=== PATIENT | female | born 1955 | race Caucasian/White ===

== ENCOUNTER 2017-05-01 11:36 | Emergency (ER) | payer OTHER ==
[~2017-05-01] VITALS: Ht 162.6 cm; Wt 58.4 kg
[2017-05-01 11:42] VITALS: BP 168/72; PULSE 69; RESP 16; TEMP 98.1; O2SAT 98
[2017-05-01] MEDS ORDERED: SYNT25TA PO (12:20)
[2017-05-01] MEDS ORDERED: ONDANSETRON HCL 4 MG/2 ML VIAL IV PUSH ONE (12:45)
[2017-05-01] MEDS ORDERED: SODIUM CHLORIDE 0.9% FLUSH 10 ML FLUSH IV FLUSH PRN (12:45)
--- NOTE | 2017-05-01 12:45 | PD ---
HPI Chief Complaint: GI Complaint Time Seen by Provider: 12:22 Travel History International Travel<30 days: No Contact w/Intl Traveler<30days: No Traveled to known affect area: No History of Present Illness HPI Patient is a 62-year-old female presents emergency Department with nonbloody and non-bilious vomiting since yesterday and diarrhea with one episode of blood in the stool yesterday. Patient states she's been having some lower abdominal cramping. Denies a history of blood thinner use. States has not happened her before. States that she's not had any colonoscopy in the past. States no fevers no vaginal bleeding or vaginal discharge. PFSH Past Medical History Hypertension: Yes Medical other: Yes (LIVER PSORIASIS) Thyroid Disease: Yes Influenza Vaccination: No ?: Not Past Surgical History Hysterectomy: Yes (PARTIAL) Social History Alcohol Use: Yes (3 DRINKS PER DAY) Tobacco Use: Yes (1/2 PPD) Substance Use: No Allergies-Medications (Allergen,Severity, Reaction): Coded Allergies: No Known Allergies (Verified Allergy, Unknown, 05/01/17) Reported Meds & Prescriptions Reported Meds & Active Scripts Active Ibuprofen 200 Mg Tab 200 Mg PO Q6H PRN Zofran Odt (Ondansetron Odt) 4 Mg Tab 4 Mg SL Q6HR PRN Bentyl (Dicyclomine HCl) 10 Mg Cap 10 Mg PO TID PRN Reported Synthroid (Levothyroxine Sodium) 25 Mcg Tab 25 Mcg PO DAILY Review of Systems Except as stated in HPI: all other systems reviewed are Neg Physical Exam Narrative GENERAL: Well-developed well-nourished in no obvious distress SKIN: Focused skin assessment warm/dry. HEAD: Atraumatic. Normocephalic. EYES: Pupils equal and round. No scleral icterus. No injection or drainage. ENT: No nasal bleeding or discharge. Mucous membranes pink and moist. NECK: Trachea midline. No JVD. CARDIOVASCULAR: Regular rate and rhythm. No murmur appreciated. RESPIRATORY: No accessory muscle use. Clear to auscultation. Breath sounds equal bilaterally. GASTROINTESTINAL: Abdomen soft, minimal tenderness left lower quadrant, nondistended. Hepatic and splenic margins not palpable. MUSCULOSKELETAL: No obvious deformities. No clubbing. No cyanosis. No edema. RECTAL: Deferred by patient. NEUROLOGICAL: Awake and alert. No obvious cranial nerve deficits. Motor grossly within normal limits. Normal speech. PSYCHIATRIC: Appropriate mood and affect; insight and judgment normal. Data Data Last Documented VS Vital Signs Date Time Temp Pulse Resp B/P (MAP) Pulse Ox O2 Delivery O2 Flow Rate FiO2 05/01/17 14:45 98.1 52 16 138/68 (91) 97 Room Air Orders Orders Complete Blood Count With Diff (05/01/17 12:42) Comprehensive Metabolic Panel (05/01/17 12:42) Lipase (05/01/17 12:42) Lactic Acid (05/01/17 12:42) Prothrombin Time / Inr (Pt) (05/01/17 12:42) Act Partial Throm Time (Ptt) (05/01/17 12:42) Iv Access Insert/Monitor (05/01/17 12:42) Ecg Monitoring (05/01/17 12:42) Oximetry (05/01/17 12:42) Sodium Chloride 0.9% Flush (Ns Flush) (05/01/17 12:45) Electrocardiogram (05/01/17 12:42) Type And Screen (05/01/17 12:42) Ondansetron Inj (Zofran Inj) (05/01/17 12:45) Morphine Inj (Morphine Inj) (05/01/17 13:00) Sodium Chlorid 0.9% 500 Ml Inj (Ns 500 M (05/01/17 13:00) Ct Abd/Pel W Iv Contrast(Rout) (05/01/17 ) Iohexol 350 Inj (Omnipaque 350 Inj) (05/01/17 14:00) Labs Laboratory Tests Test 05/01/17 12:30 White Blood Count 9.3 TH/MM3 Red Blood Count 4.03 MIL/MM3 Hemoglobin 14.5 GM/DL Hematocrit 42.8 % Mean Corpuscular Volume 106.2 FL Mean Corpuscular Hemoglobin 36.0 PG Mean Corpuscular Hemoglobin Concent 33.9 % Red Cell Distribution Width 12.5 % Platelet Count 172 TH/MM3 Mean Platelet Volume 9.3 FL Neutrophils (%) (Auto) 70.0 % Lymphocytes (%) (Auto) 19.5 % Monocytes (%) (Auto) 6.9 % Eosinophils (%) (Auto) 0.5 % Basophils (%) (Auto) 3.1 % Neutrophils # (Auto) 6.6 TH/MM3 Lymphocytes # (Auto) 1.8 TH/MM3 Monocytes # (Auto) 0.6 TH/MM3 Eosinophils # (Auto) 0.0 TH/MM3 Basophils # (Auto) 0.3 TH/MM3 CBC Comment DIFF FINAL Differential Comment Prothrombin Time 11.6 SEC Prothromb Time International Ratio 1.0 RATIO Activated Partial Thromboplast Time 25.3 SEC Blood Urea Nitrogen 10 MG/DL Creatinine 0.65 MG/DL Random Glucose 97 MG/DL Total Protein 9.3 GM/DL Albumin 3.4 GM/DL Calcium Level 9.2 MG/DL Alkaline Phosphatase 70 U/L Aspartate Amino Transf (AST/SGOT) 30 U/L Alanine Aminotransferase (ALT/SGPT) 26 U/L Total Bilirubin 1.0 MG/DL Sodium Level 140 MEQ/L Potassium Level 3.4 MEQ/L Chloride Level 107 MEQ/L Carbon Dioxide Level 24.4 MEQ/L Anion Gap 9 MEQ/L Estimat Glomerular Filtration Rate 93 ML/MIN Lactic Acid Level 1.3 mmol/L Lipase 114 U/L [facility] Medical Decision Making Medical Screen Exam Complete: Yes Emergency Medical Condition: Yes Interpretation(s) EKG shows sinus rhythm with occasional PVCs which are monofocal. Normal axis normal R-wave progression. No concerning ST segment changes. Intervals within normal limits. An abnormal EKG. Differential Diagnosis GI bleeding, coagulopathy, diverticulitis, colitis. Anemia. Narrative Course Patient roomed emergency department, appears comfortable in no distress. Feeling better after medicines given. Labs are fairly unremarkable Pain Medicines given. Hemoglobin is 14. CAT scan results reviewed and shows: Last 24 hours Impressions Abdomen/Pelvis CT 05/01/17 0000 Signed Impressions: Service Date/Time: Monday, May 01, 2017 14:21 - CONCLUSION: 1. Hepatic steatosis with nodularity suggesting morphologic changes of cirrhosis. 2. Wall thickening with inflammatory changes of the distal descending and sigmoid colon , likely colitis. Aguila Lopez MD Patient is feeling more comfortable and she was offered admission to the hospital given GI bleed but she would like to go home and follow-up with a primary care physician. I think is quite reasonable given her hemoglobin level and the fact that she is not on anticoagulants. Diagnosis Primary Impression: GI bleeding Additional Impression: Colitis Med/Other Pt SpecificInfo: Prescription(s) given Scripts Ibuprofen (Ibuprofen) 200 Mg Tab 200 MG PO Q6H Y for PAIN SCALE 1 TO 10, #30 TAB 0 Refills Prov: Ke Cavanaugh MD 05/01/17 Ondansetron Odt (Zofran Odt) 4 Mg Tab 4 MG SL Q6HR Y for Nausea/Vomiting, #30 TAB 0 Refills Prov: Ke Cavanaugh MD 05/01/17 Dicyclomine (Bentyl) 10 Mg Cap 10 MG PO TID Y for ABDOMINAL CRAMPING, #20 CAP 0 Refills Prov: Ke Cavanaugh MD 05/01/17 Disposition: 01 DISCHARGE HOME Condition: Stable Ke Cavanaugh MD May 01, 2017 12:45
[2017-05-01 12:53] LABS: AUTOMATED NEUTROPHIL # 6.6 TH/MM3 (1.8-7.7); BASOPHIL # 0.3 TH/MM3 (0-0.2); BASOPHIL % 3.1 % (0.0-2.0); EOSINOPHIL % 0.5 % (0.0-4.0); HEMATOCRIT 42.8 % (35.0-46.0); HEMO FLAGS DIFF FINAL; LYMPH % 19.5 % (9.0-44.0); LYMPHOCYTE # 1.8 TH/MM3 (1.0-4.8); MEAN CELL VOLUME 106.2 FL (80.0-100.0); MEAN CORPUSCULAR HGB CONC 33.9 % (32.0-36.0); MONO % 6.9 % (0.0-8.0); PLATELET COUNT 172 TH/MM3 (150-450); RED BLOOD COUNT 4.03 MIL/MM3 (4.00-5.30); RED CELL DISTRIBUTION WIDTH 12.5 % (11.6-17.2); WHITE BLOOD COUNT 9.3 TH/MM3 (4.0-11.0)
[2017-05-01] MEDS ORDERED: MORPHINE SULFATE 4 MG/ML INJ IV PUSH ONE (13:00)
[2017-05-01] MEDS ORDERED: SODIUM CHLORID 0.9% 500 ML INJ 500 ML IV ONE (13:00)
[2017-05-01 13:09] LABS: CHLORIDE 107 MEQ/L (98-107); POTASSIUM 3.4 MEQ/L (3.5-5.1); SODIUM (NA) 140 MEQ/L (136-145)
[2017-05-01 13:13] LABS: ANION GAP 9 MEQ/L (5-15); APTT (PATIENT) 25.3 SEC (24.3-30.1); BICARBONATE 24.4 MEQ/L (21.0-32.0); BLOOD UREA NITROGEN 10 MG/DL (7-18); PROTHROMBIN TIME - PATIENT 11.6 SEC (9.8-11.6)
[2017-05-01 13:16] LABS: AST (GOT) 30 U/L (15-37); GLOMERULAR FILTRATION RATE 93 ML/MIN (>89)
[2017-05-01 13:17] LABS: ALT (GPT) 26 U/L (10-53)
[2017-05-01 13:19] LABS: ALKALINE PHOSPHATASE 70 U/L (45-117)
[2017-05-01] MEDS ORDERED: IOHEXOL 350 MG/ML 10 ML VIAL (for RAD DIAG) IV ONE (14:00)
--- NOTE | 2017-05-01 14:43 | RADRPT ---
EXAM DATE/TIME: 05/01/2017 14:21 [place] COMPARISON: No previous studies available for comparison. INDICATIONS : Rectal bleeding and lower abdominal pain. IV CONTRAST: 75 cc Omnipaque 350 (iohexol) IV ORAL CONTRAST: No oral contrast ingested. RADIATION DOSE: 6.47 CTDIvol (mGy) MEDICAL HISTORY : Hypertension. Thyroid SURGICAL HISTORY : Partial hysterectomy. ENCOUNTER: Initial ACUITY: 2 days PAIN SCALE: 7/10 LOCATION: Bilateral lower abdomen. TECHNIQUE: Volumetric scanning of the abdomen and pelvis was performed. Using automated exposure control and ad justment of the mA and/or kV according to patient size, radiation dose was kept as low as reasonably achievable to obtain optimal diagnostic quality images. DICOM format image data is available electro nically for review and comparison. FINDINGS: LOWER LUNGS: The visualized lower lungs are clear. LIVER: Nodular contour with decreased attenuation without lesion. There is no dilation of the biliary tree. No calcified gallstones. SPLEEN: Normal size without lesion. PANCREAS: Within normal limits. KIDNEYS: Normal in size and shape. There is no mass, stone or hydronephrosis. ADRENAL GLANDS: Within normal limits. VASCULAR: There is no aortic aneurysm. Atherosclerotic changes. Mesenteric arteries appear patent. BOWEL/MESENTERY: Wall thickening of the distal descending and sigmoid colon. Slight inflammatory changes.. There is n o free intraperitoneal air or fluid. ABDOMINAL WALL: Within normal limits. RETROPERITONEUM: There is no lymphadenopathy. BLADDER: No wall thickening or mass. REPRODUCTIVE: Within normal limits. INGUINAL: There is no lymphadenopathy or hernia. MUSCULOSKELETAL: Within normal limits for patient age. CONCLUSION: 1. Hepatic steatosis with nodularity suggesting morphologic changes of cirrhosis. 2. Wall thickening with inflammatory changes of the distal descending and sigmoid colon, likely colit is. Aguila Lopez MD on May 01, 2017 at 14:37 Board Certified Radiologist. This report was verified electronically.
[2017-05-01 14:45] VITALS: BP 138/68; PULSE 52; RESP 16; TEMP 98.1; O2SAT 97
[2017-05-01] MEDS ORDERED: ZOFR4TAB3 SL (14:59)
[2017-05-01] MEDS ORDERED: DICY10 PO (14:59)
[2017-05-01] MEDS ORDERED: IBUP200T2 PO (14:59)
--- NOTE | 2017-05-02 16:06 | EKG ---
Date Performed: 05/01/2017 Time Performed: 13:04:59 PTAGE: 62 years EKG: Sinus rhythm WITH OCCASIONAL VENTRICULAR PREMATURE COMPLEXES Diffused nonspecific ST-T wave change NO PREVIOUS TRACING for comparison ABNORMAL ECG NO PREVIOUS TRACING DOCTOR: Jhonny Oliva Interpretating Date/Time 05/02/2017 16:03:47
== END 2017-05-01 15:10 | disposition home or self-care (01) ==
LOC: PHED 11:36
DX: K52.9 Noninfective gastroenteritis and colitis, unspecified (principal); I10 Essential (primary) hypertension; F17.200 Nicotine dependence, unspecified, uncomplicated; Z79.899 Other long term (current) drug therapy
CPT/HCPCS: 74177; 80053; 83605; 83690; 85025; 85610; 85730; 86850; 86900; 86901; 93005; 96374; 96375; 99285; J2270; J2405; J7040; Q9967

== ENCOUNTER 2017-09-01 09:20 | Emergency (ER) | payer OTHER ==
[~2017-09-01] VITALS: Ht 162.6 cm; Wt 60.0 kg
[~2017-09-01 09:20] MED LIST: DICY10 PO; IBUP200T47 PO; SYNT25TA PO; ZOFR4TAB3 SL
[2017-09-01 09:23] VITALS: BP 173/86; PULSE 79; RESP 18; TEMP 98.7; O2SAT 97
[2017-09-01] MEDS ORDERED: SODIUM CHLOR 0.9% 1000 ML INJ 1,000 ML IV SCH (09:44)
[2017-09-01] MEDS ORDERED: LISI20TA PO (09:45)
[2017-09-01] MEDS ORDERED: KETOROLAC TROMETHAMINE 30 MG/ML (IVP) VIAL IVP ONE (09:45)
[2017-09-01] MEDS ORDERED: PANTOPRAZOLE SODIUM 40 MG VIAL IVP ONE (09:45)
[2017-09-01] MEDS ORDERED: ONDANSETRON HCL 4 MG/2 ML VIAL IVP ONE (09:45)
--- NOTE | 2017-09-01 09:47 | PD ---
HPI Chief Complaint: GI Complaint Time Seen by Provider: 09:32 Travel History International Travel<30 days: No Contact w/Intl Traveler<30days: No Traveled to known affect area: No History of Present Illness HPI 62-year-old female came to the emergency room with history of lower back pain radiating to her left buttock and in back of her left knee for past 2 weeks. However for past 2 days she has started to vomit and unable to keep anything down. Patient says that she has been trying to take care of her back pain with Advil or Aleve 3 times a day. She looked uncomfortable when she came in. Her has brought her in. Vital signs were relatively stable. Upon asking patient said that she had this same backache about 2 months ago but then it went away. She does not have insurance and cannot afford medication of blood test. [facility] Past Medical History Narrative Medical List of her past medical, surgical, social and family history is reviewed from the nursing note. Hypertension: Yes Thyroid Disease: Yes Past Surgical History Hysterectomy: Yes (PARTIAL) Social History Alcohol Use: Yes (3 DRINKS PER DAY) Tobacco Use: Yes (1/2 PPD) Substance Use: No Allergies-Medications (Allergen,Severity, Reaction): Coded Allergies: No Known Allergies (Verified , 09/01/17) Comments No known drug allergies. Reported Meds & Prescriptions Reported Meds & Active Scripts Active Colace (Docusate Sodium) 100 Mg Capsule 1 Cap PO BID Macrobid (Nitrofurantoin Monoh/Nitrofur Macro) 100 Mg Cap 100 Mg PO BID 7 Days Zofran Odt (Ondansetron Odt) 4 Mg Tab 4 Mg SL Q6HR PRN Omeprazole 40 Mg Cap 40 Mg PO DAILY Hydrocodone-Acetaminophen 5-325 mg Tab 1 Tab PO Q6H PRN Reported Lisinopril-Hctz 20-12.5 Mg Tab 1 Tab PO DAILY Synthroid (Levothyroxine Sodium) 25 Mcg Tab 25 Mcg PO DAILY Narrative Medication List of her home medications reviewed from the nursing note. Review of Systems Except as stated in HPI: all other systems reviewed are Neg Gastrointestinal: Positive: Vomiting Physical Exam Narrative GENERAL: Awake, alert, moderate distress SKIN: Focused skin assessment warm/dry. HEAD: Atraumatic. Normocephalic. EYES: Pupils equal and round. No scleral icterus. No injection or drainage. ENT: No nasal bleeding or discharge. Dry mucous membrane NECK: Trachea midline. No JVD. CARDIOVASCULAR: Regular rate and rhythm. No murmur appreciated. RESPIRATORY: No accessory muscle use. Clear to auscultation. Breath sounds equal bilaterally. GASTROINTESTINAL: Abdomen soft, non-tender, nondistended. Hepatic and splenic margins not palpable. MUSCULOSKELETAL: No obvious deformities. No clubbing. No cyanosis. No edema. No step-offs of the lumbar spine no point tenderness NEUROLOGICAL: Awake and alert. No obvious cranial nerve deficits. Motor grossly within normal limits. Normal speech. PSYCHIATRIC: Appropriate mood and affect; insight and judgment normal. Data Data Last Documented VS Orders Orders Complete Blood Count With Diff (09/01/17 09:44) Comprehensive Metabolic Panel (09/01/17 09:44) Lipase (09/01/17 09:44) Urinalysis - C+S If Indicated (09/01/17 09:44) Iv Access Insert/Monitor (09/01/17 09:44) Ecg Monitoring (09/01/17 09:44) Oximetry (09/01/17 09:44) Ondansetron Inj (Zofran Inj) (09/01/17 09:45) Pantoprazole Inj (Protonix Inj) (09/01/17 09:45) Sodium Chlor 0.9% 1000 Ml Inj (Ns 1000 M (09/01/17 09:44) Sodium Chloride 0.9% Flush (Ns Flush) (09/01/17 09:45) Ketorolac Inj (Toradol Inj) (09/01/17 09:45) Orphenadrine Inj (Norflex Inj) (09/01/17 11:15) Morphine Inj (Morphine Inj) (09/01/17 11:15) Metoclopramide Inj (Reglan Inj) (09/01/17 11:30) Urine Culture (09/01/17 11:00) Sodium Chlor 0.9% 1000 Ml Inj (Ns 1000 M (09/01/17 12:00) Nitrofurantoin Monohyd Macrocr (Macrobid (09/01/17 12:00) Ed Discharge Order (09/01/17 12:24) Labs Laboratory Tests Test 09/01/17 09:45 09/01/17 11:00 White Blood Count 8.2 TH/MM3 Red Blood Count 4.32 MIL/MM3 Hemoglobin 16.3 GM/DL Hematocrit 46.8 % Mean Corpuscular Volume 108.2 FL Mean Corpuscular Hemoglobin 37.8 PG Mean Corpuscular Hemoglobin Concent 34.9 % Red Cell Distribution Width 12.5 % Platelet Count 254 TH/MM3 Mean Platelet Volume 9.8 FL Neutrophils (%) (Auto) 89.2 % Lymphocytes (%) (Auto) 7.6 % Monocytes (%) (Auto) 2.8 % Eosinophils (%) (Auto) 0.0 % Basophils (%) (Auto) 0.4 % Neutrophils # (Auto) 7.3 TH/MM3 Lymphocytes # (Auto) 0.6 TH/MM3 Monocytes # (Auto) 0.2 TH/MM3 Eosinophils # (Auto) 0.0 TH/MM3 Basophils # (Auto) 0.0 TH/MM3 CBC Comment DIFF FINAL Differential Comment Blood Urea Nitrogen 18 MG/DL Creatinine 0.82 MG/DL Random Glucose 171 MG/DL Total Protein 10.7 GM/DL Albumin 3.9 GM/DL Calcium Level 9.9 MG/DL Alkaline Phosphatase 75 U/L Aspartate Amino Transf (AST/SGOT) 38 U/L Alanine Aminotransferase (ALT/SGPT) 34 U/L Total Bilirubin 0.7 MG/DL Sodium Level 135 MEQ/L Potassium Level 3.9 MEQ/L Chloride Level 97 MEQ/L Carbon Dioxide Level 26.4 MEQ/L Anion Gap 12 MEQ/L Estimat Glomerular Filtration Rate 71 ML/MIN Lipase 74 U/L Urine Color YELLOW Urine Turbidity HAZY Urine pH 6.0 Urine Specific [place] 1.020 Urine Protein 100 mg/dL Urine Glucose (UA) NEG mg/dL Urine Ketones 80 mg/dL Urine Occult Blood SMALL Urine Nitrite POS Urine Bilirubin NEG Urine Urobilinogen 2.0 MG/DL Urine Leukocyte Esterase NEG Urine RBC 4 /hpf Urine WBC 3 /hpf Urine Squamous Epithelial Cells 1 /hpf Urine Amorphous Sediment RARE Urine Bacteria MANY /hpf Urine Hyaline Casts 13 /lpf Urine Mucus FEW /lpf Microscopic Urinalysis Comment CULTURE INDICATED MDM Medical Decision Making Medical Screen Exam Complete: Yes Emergency Medical Condition: Yes Medical Record Reviewed: Yes Differential Diagnosis Lumbar radiculopathy, acute gastritis, dehydration Narrative Course 12:27 PM patient was medicated for pain and IV Protonix given for possible gastritis secondary to the NSAIDs. Blood test results came back and shows signs of hemoconcentration. I ordered a second liter of IV fluid bolus and went back to reassess her. Patient says her pain is down from 5-4. I ordered some more pain medication and muscle relaxant. UA shows a UTI and she's been given Macrobid. I'll discharge her home at this point. Procedures EKG Prior to Arrival: No Diagnosis Primary Impression: Acute gastritis Qualified Codes: K29.00 - Acute gastritis without bleeding Additional Impressions: Lumbar radiculopathy, acute UTI (urinary tract infection) Qualified Codes: N39.0 - Urinary tract infection, site not specified Dehydration Referrals: Primary Care Physician Additional Instructions: Please return to the ER if condition worsens or any other new concerns. Otherwise follow-up with your primary care within a week to get an MRI of your back. Take the medications as per the prescription direction. Do not take over -the-counter Aleve/Advil/Motrin/ibuprofen till your symptoms of vomiting subside. Med/Other Pt SpecificInfo: Prescription(s) given Scripts Docusate Sodium (Colace) 100 Mg Capsule 1 CAP PO BID, #10 Prov: Gil Arango MD 09/01/17 Nitrofurantoin Monohydrate Macrocrystals (Macrobid) 100 Mg Cap 100 MG PO BID for Infection for 7 Days, #14 CAP 0 Refills Prov: Gil Arango MD 09/01/17 Ondansetron Odt (Zofran Odt) 4 Mg Tab 4 MG SL Q6HR Y for Nausea/Vomiting, #15 TAB 0 Refills Prov: Gil Arango MD 09/01/17 Omeprazole (Omeprazole) 40 Mg Cap 40 MG PO DAILY, #30 CAP 0 Refills Prov: Gil Arango MD 09/01/17 Hydrocodone-Acetaminophen (Hydrocodone-Acetaminophen) 5-325 mg Tab 1 TAB PO Q6H Y for PAIN, #20 TAB 0 Refills Prov: Gil Arango MD 09/01/17 Disposition: 01 DISCHARGE HOME Condition: Stable Gil Arango MD Sep 01, 2017 09:47
[2017-09-01 10:14] LABS: AUTOMATED NEUTROPHIL # 7.3 TH/MM3 (1.8-7.7); BASOPHIL % 0.4 % (0.0-2.0); HEMATOCRIT 46.8 % (35.0-46.0); HEMOGLOBIN 16.3 GM/DL (11.6-15.3); LYMPH % 7.6 % (9.0-44.0); LYMPHOCYTE # 0.6 TH/MM3 (1.0-4.8); MEAN CELL VOLUME 108.2 FL (80.0-100.0); MEAN CORPUSCULAR HEMOGLOBIN 37.8 PG (27.0-34.0); MEAN CORPUSCULAR HGB CONC 34.9 % (32.0-36.0); MEAN PLATELET VOLUME 9.8 FL (7.0-11.0); MONO % 2.8 % (0.0-8.0); MONOCYTE # 0.2 TH/MM3 (0-0.9); NEUT % 89.2 % (16.0-70.0); PLATELET COUNT 254 TH/MM3 (150-450); RED BLOOD COUNT 4.32 MIL/MM3 (4.00-5.30); RED CELL DISTRIBUTION WIDTH 12.5 % (11.6-17.2); WHITE BLOOD COUNT 8.2 TH/MM3 (4.0-11.0)
[2017-09-01] MEDS: SODIUM CHLORIDE 0.9% FLUSH 10 ML FLUSH IV FLUSH PRN ×2 (10:16→11:39)
[2017-09-01 10:36] LABS: ALKALINE PHOSPHATASE 75 U/L (45-117); TOTAL BILIRUBIN ADULT 0.7 MG/DL (0.2-1.0); TOTAL PROTEIN 10.7 GM/DL (6.4-8.2)
[2017-09-01 10:38] LABS: ALBUMIN 3.9 GM/DL (3.4-5.0); ALT (GPT) 34 U/L (10-53); AST (GOT) 38 U/L (15-37); BICARBONATE 26.4 MEQ/L (21.0-32.0); BLOOD UREA NITROGEN 18 MG/DL (7-18); CALCIUM 9.9 MG/DL (8.5-10.1); CHLORIDE 97 MEQ/L (98-107); CREATININE 0.82 MG/DL (0.50-1.00); GLOMERULAR FILTRATION RATE 71 ML/MIN (>89); GLUCOSE,RANDOM 171 MG/DL (74-106); LIPASE 74 U/L (73-393); SODIUM (NA) 135 MEQ/L (136-145)
[2017-09-01] MEDS ORDERED: MORPHINE SULFATE 2 MG/ML INJ IV PUSH ONE (11:15)
[2017-09-01] MEDS ORDERED: ORPHENADRINE INJ 60 MG/2 ML AMP IM ONE (11:15)
[2017-09-01] MEDS ORDERED: METOCLOPRAMIDE HCL 10 MG/2 ML VIAL IV PUSH ONE (11:30)
[2017-09-01 11:33] LABS: AMORPHOUS SEDIMENT, URINE RARE; BACTERIA, URINE MANY /hpf; BILIRUBIN, URINE NEG (NEG); BLOOD, URINE SMALL (NEG); GLUCOSE,URINE NEG (NEG); HYALINE CAST, URINE 13 /lpf (RARE); KETONE, URINE 80 mg/dL (NEG); MUCUS URINE FEW /lpf (OCC); NITRITE,URINE POS (NEG); SQUAMOUS EPITHELIAL CELL URINE 1 /hpf (0-5); URINE COLOR YELLOW (YELLW/STRAW); URINE LEUKOCYTE ESTERASE NEG (NEG)
[2017-09-01] MEDS ORDERED: NITROFURANTOIN MONOHYD MACROCR 100 MG CAP PO ONE (12:00)
[2017-09-01] MEDS ORDERED: SODIUM CHLOR 0.9% 1000 ML INJ 1,000 ML IV ONE (12:00)
[2017-09-01] MEDS ORDERED: MACR100C2 PO (12:31)
[2017-09-01] MEDS ORDERED: HYDR-3516 PO (12:31)
[2017-09-01] MEDS ORDERED: COLA100C5 PO (12:31)
[2017-09-01] MEDS ORDERED: ZOFR4TAB3 SL (12:31)
[2017-09-01] MEDS ORDERED: OMEP40CA2 PO (12:31)
== END 2017-09-01 13:58 | disposition home or self-care (01) ==
LOC: NEPD 09:20
DX: K29.00 Acute gastritis without bleeding (principal); M54.16 Radiculopathy, lumbar region; N39.0 Urinary tract infection, site not specified; B96.1 Klebsiella pneumoniae [K. pneumoniae] as the cause of diseases classified elsewhere; E86.0 Dehydration; I10 Essential (primary) hypertension; E07.9 Disorder of thyroid, unspecified; F17.200 Nicotine dependence, unspecified, uncomplicated; Z79.899 Other long term (current) drug therapy
CPT/HCPCS: 80053; 81001; 83690; 85025; 87077; 87086; 87186; 96361; 96372; 96374; 96375; 99285; C9113; J1885; J2270; J2360; J2405; J2765; J7030